=== PATIENT | male | born 1965 | race Caucasian/White ===

== ENCOUNTER 2021-09-19 09:34 | Day surgery (SDC) | payer OTHER ==
[~2021-09-19] VITALS: Ht 170.2 cm; Wt 111.7 kg
[~2021-09-19 09:34] MED LIST: Amlodipine Besyl5 MG PO; Aspirin EC81 MG PO; B Complex1 EAC2 PO; Benazepril HCl40 MG PO; Lovastatin20 MG PO; MICROZIDE12.5 MG PO; VITAMIN D32000 UNI1 PO
--- NOTE | 2021-09-19 10:56 | NUR ---
09/19/21 1056 Moriah Gusman two attempts at IV. FIRST ATTEMPT BY MA IN RIGHT HAND INFILTRATED. SECOND ATTEMPT BY MA IN LEFT HAND SUCCESSFUL.
--- NOTE | 2021-09-19 12:55 | NUR ---
09/19/21 0455 WESLEY SCOTT PT STARTED ON 3L PER N/C THEN 5L PER N/C THEN POM MASK AT 10L. ORAL AIRWAY PLACED. 10L POM MASK.- INCREASED 02 TO 15 L.
== END 2021-09-19 12:55 | disposition home or self-care (01) ==
LOC: ORSCSDS 09:34
PROVIDERS: Internal Medicine Gastroenterology
PROC: 0DBL8ZX Excision of Transverse Colon, Via Natural or Artificial Opening Endoscopic, Diagnostic (ICD-10-PCS; principal; 2021-09-19 11:15)
PROC: 0DBK8ZX Excision of Ascending Colon, Via Natural or Artificial Opening Endoscopic, Diagnostic (ICD-10-PCS; principal; 2021-09-19 11:15)
DX: Z12.11 Encounter for screening for malignant neoplasm of colon (principal); Z86.010 Personal history of colon polyps; D12.2 Benign neoplasm of ascending colon; D12.3 Benign neoplasm of transverse colon; K57.30 Diverticulosis of large intestine without perforation or abscess without bleeding; K64.8 Other hemorrhoids
CPT/HCPCS: 88305; J2250; J2704; J7120